=== PATIENT | male | born 1960 | race Caucasian/White ===

== ENCOUNTER 2020-09-14 06:09 | Day surgery (SDC) | payer MEDICAID ==
[2020-09-12 13:57] LABS: COVID AG,FIA SOURCE NASOPHARYNGEAL
[~2020-09-14] VITALS: Ht 157.5 cm; Wt 66.4 kg
[~2020-09-14 06:09] MED LIST: SODIUM CHLORIDE 0.9% 1,000 ML IV ONE; SODIUM CHLORIDE 0.9% 1,000 ML ONE
[2020-09-14] MEDS ORDERED: MIDAZOLAM HCL 5 MG/ML VIAL ONE (07:27)
[2020-09-14] MEDS ORDERED: FentaNYL CITRATE PF 100 MCG/2 ML VIAL ONE (07:27)
[2020-09-14] MEDS ORDERED: LORazepam 2 MG/ML VIAL ONE (07:27)
[2020-09-14] MEDS ORDERED: DIVA-80 PO ×2 (08:26)
[2020-09-14] MEDS ORDERED: LORA10TA7 PO (08:52)
[2020-09-14] MEDS ORDERED: TIOT185 IH (08:52)
[2020-09-14] MEDS ORDERED: SIMV-260 PO (08:52)
[2020-09-14] MEDS ORDERED: METO-296 PO (08:52)
[2020-09-14] MEDS ORDERED: [UNRECOGNIZED DRUG - CODE] PO (08:52)
[2020-09-14] MEDS ORDERED: MEGE40L PO (08:52)
[2020-09-14] MEDS ORDERED: MIRT30 PO (08:52)
[2020-09-14] MEDS ORDERED: RISP0.5T39 PO (08:52)
[2020-09-14] MEDS ORDERED: ALBU8HFA IH (08:52)
[2020-09-14] MEDS ORDERED: MONT-35 PO (08:52)
[2020-09-14] MEDS ORDERED: METF-961 PO (08:52)
[2020-09-14] MEDS ORDERED: FLUT16H NASAL (08:52)
[2020-09-14] MEDS ORDERED: ACET-2247 PO (08:52)
[2020-09-14] MEDS ORDERED: FAMO20 PO (08:52)
[2020-09-14] MEDS ORDERED: BUDE10.2 IH (08:52)
[2020-09-14] MEDS: MethylPREDNISolone SOD SUCC 125 MG/2 ML VIAL IVP ONE (09:36)
[2020-09-14] MEDS ORDERED: OXYGEN THERAPY IH SCH (20:00)
== END 2020-09-14 10:01 ==
LOC: SURGERY 06:09
PROVIDERS: ATTEND Internal Medicine Critical Care Medicine
DX: J38.4 Edema of larynx (principal); B37.0 Candidal stomatitis
CPT/HCPCS: 31623; 31624; 71045; 87015; 87070; 87101; 87205; 87206; 87220; 87426; 88108; 88184; 88185; 88312; C9803; J2250; J2930; J3010; J7030; J2060